=== PATIENT | male | born 1970 | race Caucasian/White ===

== ENCOUNTER 2024-11-22 13:45 | Outpatient (REF) | payer OTHER, SELFPAY ==
--- OUTSIDE RECORDS SUMMARY | 2024-09-13 11:00 | XMS_ITS | Encounter Summary ---
Author Name [facility] [place] [facility] [place] Address [address] [place] [address] Care Team Providers Care Texturing Machine Fixer Name Role Phone ISAEL LAY Primary Care Provider Unavail able Selected Encounter This section includes the information on record at [place] for the Encounter. Date/Time Encounter Type Encounter Description Reason Provider Source Sep 13, 2024 03:00 PM PSYCH DIAGNOSTIC EVALUATION PRIMARY CARE/MEDICINE ICD-10-CM Z72.0 Tobacco use ARIAS MCMANUS Harsh Encounter Template Text not used by CT Assessments - Encounter Diagnoses This section includes the primary and secondary diagnoses documented for the Encounter. Date/Time Primary/Secondary Diagnosis Diagnosis Name Provider Source Sep 17, 2024 01:20 PM PRIMARY Tobacco use BENIGNO VIGIL [facility] Sep 17, 2024 01:20 PM SECONDARY Nicotine dependence, cigarettes, uncomplicated BENIGNO VIGIL [facility] Plan of Treatment: Future Appointments (+ 6 months) and Future Tests (+/- 45 days) The Plan of Treatment section includes future care activities for the patient from all [place] treatmentfacilities. This section includes future appointments and future orders which are active, pending or scheduled. Future Appointments This section includes appointments that were scheduled to occur 6 months from the date of the Encounter, up to a maximum of 20 appointments. The data comes from all [place] treatment facilities. Appointment Date/Time Appointment Type Appointme nt Facility Name Sep 20, 2024 03:00 PM AMBULATORY - MEDICINE [facility] September 27, 2024 03:00 PM AMBULATORY [facility] October 17, 2024 01:45 PM [facility] Dec 19, 2024 01:45 PM [facility] Dec 19, 2024 03:30 PM AMBULATORY - MEDICINE [facility] Feb 27, 2025 03:00 PM [facility] Active, Pending, and Scheduled Orders This section includes a listing of several types of active, pending, and scheduled orders, including clinic medications orders, diagnostic test orders, procedure orders and consult orders; where the start date of the order is 45 days before the date of the Encounter or 45 days after the date of theEncounter. The data comes from all [facility] [place] facilities. Test Date/Time Test Type Test Details Facility Name Aug 05, 2024 12:00 AM Laboratory - Chemi stry Order BASIC METABOLIC PANEL (fasting) BLOOD (SST-SERUM) [facility] Aug 05, 2024 12:00 AM Laboratory - Chemi stry Order LIVER FUNCTION BLOOD (SST-SERUM) [facility] Aug 05, 2024 12:00 AM Laboratory - Chemi stry Order LIPID PANEL FASTING BLOOD (SST-SERUM) [facility] Aug 05, 2024 12:00 AM Laboratory - Chemi stry Order TSH BLOOD (SST-SERUM) [facility] Social History: Smoking Status (Most current) and Tobacco Use (All prior to encounter date) This section includes the most current, and the historical, smoking and tobacco- related health factors from the [place] facility where the Encounter took place. Current Smoking Status This section includes the most current smoking, or tobacco-related health factor, from the [place] facility where the Encounter took place. Date/Time Current Smoking Status Comment Facil ity Apr 11, 2024 11:30 AM VA-TOBACCO USER EVERY DAY [facility] Tobacco Use History This section includes a history of the smoking, or tobacco-related health factors, that were collected on or before the date of the Encounter. The data comes from the [place] facility where the Encounter took place. Date/Time Smoking Status/Tobacco Use Comment F acility Apr 11, 2024 11:30 AM VA-TOBACCO USE 30 YEARS OR MORE [facility] [place] [facility] Apr 11, 2024 11:30 AM VA-TOBACCO USE ADVICE [facility] [place] [facility] Apr 11, 2024 11:30 AM VA-TOBACCO USE SPONGE PACKER NO [facility] [place] [facility] Apr 11, 2024 11:30 AM VA-TOBACCO USE MED NO [facility] [place] [facility] Apr 11, 2024 11:30 AM VA-TOBACCO USER EVERY DAY [facility] [place] [facility] Jan 03, 2023 03:30 PM VA-TOBACCO DOESNT USE WI 30 MIN WAKEUP [facility] [place] [facility] Jan 03, 2023 03:30 PM VA-TOBACCO USE 30 YEARS OR MORE [facility] [place] [facility] Jan 03, 2023 03:30 PM VA-TOBACCO USE ADVICE [facility] [place] [facility] Jan 03, 2023 03:30 PM VA-TOBACCO USE SPONGE PACKER NO [facility] [place] [facility] Jan 03, 2023 03:30 PM VA-TOBACCO USE MED NO [facility] [place] [facility] Jan 03, 2023 03:30 PM VA-TOBACCO USER EVERY DAY [facility] [place] [facility] Dec 03, 2021 03:00 PM VA-TOBACCO DOESNT USE WI 30 MIN WAKEUP [facility] [place] [facility] Dec 03, 2021 03:00 PM VA-TOBACCO USE 30 YEARS OR MORE [facility] [place] [facility] Dec 03, 2021 03:00 PM VA-TOBACCO USE ADVICE [facility] [place] [facility] Dec 03, 2021 03:00 PM VA-TOBACCO USE SPONGE PACKER NO [facility] [place] [facility] Dec 03, 2021 03:00 PM VA-TOBACCO USE MED NO [facility] [place] [facility] Dec 03, 2021 03:00 PM VA-TOBACCO USER EVERY DAY [facility] [place] [facility] Dec 31, 2020 01:30 PM VA-TOBACCO DOESNT USE WI 30 MIN WAKEUP [facility] [place] [facility] Dec 31, 2020 01:30 PM VA-TOBACCO USE > 1 5 LESS THAN 30 YEARS [facility] [place] [facility] Dec 31, 2020 01:30 PM VA-TOBACCO USE ADVICE [facility] [place] [facility] Dec 31, 2020 01:30 PM VA-TOBACCO USE SPONGE PACKER NO [facility] [place] [facility] Dec 31, 2020 01:30 PM VA-TOBACCO USE MED NO [facility] [place] [facility] Dec 31, 2020 01:30 PM VA-TOBACCO USER EVERY DAY [facility] [place] [facility] Sep 03, 2019 07:49 AM VA-TOBACCO USE 5 TO 15 YEARS [facility] [place] [facility] Sep 03, 2019 07:49 AM VA-TOBACCO USE ADVICE [facility] [place] [facility] Sep 03, 2019 07:49 AM VA-TOBACCO USE SPONGE PACKER NO [facility] [place] [facility] Sep 03, 2019 07:49 AM VA-TOBACCO USE MED YES [facility] [place] [facility] Sep 03, 2019 07:49 AM VA-TOBACCO USE WI 30 MIN OF WAKEUP [facility] [place] [facility] Sep 03, 2019 07:49 AM VA-TOBACCO USER EVERY DAY [facility] [place] [facility] Encounter Notes: All associated encounter notes This section contains the clinical notes associated to the Encounter. Date/Time Encounter Note(s) Provider Source Sep 18, 2024 09:00 AM ADDENDUM: LOCAL TITLE: Addendum STANDARD TITLE: ADDENDUM DATE OF NOTE: SEP 18, 2024@09:00:30 ENTRY DATE: SEP 18, 2024@09:00:31 AUTHOR: JAYLA MCMANUS EXP COSIGNER: URGENCY: STATUS: COMPLETED I have reviewed this case and concur with the clinical impressions and recommendations made by this trainee who is under my clinical supervision. alerting amsa to rtc in [address] internet site designer clinic. thank you /mirta/ Jayla Mcmanus PhD Clinical Psychologist Signed: 09/18/2024 09:00 Receipt Acknowledged By: 09/19/2024 11:26 /es/ IRENE AUGUSTINE SABRINA --- Original Document --- 09/13/24 TOBACCO CESSATION NOTE: Tobacco Cessation Screening Evaluation Duration: DEMOGRAPHICS AND INFORMATION ON TOBACCO USE HISTORY: Age: 54 Age of first cigarette/use of tobacco: 14 Number of years of tobacco use: 40 years Number of cigarettes smoked daily: 10 Smokeless tobacco use (tobacco chew or pouches): No Cigar use: No E-cigarette use: No Nicotine pouches (zyn 3mg or 6mg): No Heaviness of Smoking Index 1. How soon after you wake up do you smoke your first cigarette? After 60 minutes (0) X 31-60 minutes (1) 6-30 minutes (2) Within 5 minutes (3) 2. How many cigarettes per day do you smoke? 10 or less (0) X 11-20 (1) 21-30 (2) 31 or more (3) Level of dependence on nicotine is: 0 low dependence Brand of tobacco product: [place] Serious quit attempts (number of times quit for at least 24 hours): [place] reported about 5 serious attempts to quit smoking. Longest period of abstinence: 5 years Pharmacological / Behavioral methods used: 1. Nicotine patch: No. [place] indicated he might be interested in this option. 2. Nicotine gum: Yes, tried it. Too strong. Napan[place] like I was going to . My blood pressure byron. It was crazy. My PA said I had probably been prescribed too much and could prescribe smaller amounts. 3. Nicotine lozenges: Those actually work. They took away the headaches. 4. Bupropion: No 5. Chantix: No. [place] reported openness to trying Chantix given how popular it is but is leery of the side effects including nightmares. Ever been to a Smoking Cessation Clinic before?: Yes. [place] reported having 6 smoking cessation sessions through the [facility] a couple of years ago. MEDICAL RISK FACTORS: Active Problem HTN - Hypertension ([facility] [id number]) I 05/07/2024 ISAEL LAY Long-term current use of anticoagul 04/22/2024 MICHAEL SHORT Thoracic aortic aneurysm without ru 04/20/2024 ISAEL LAY Family history of cancer of colon Z 04/18/2024 ISAEL LAY DVT - Deep vein thrombosis I82.409, 06/07/2024 ISAEL LAY Skin rash R21. 07/06/2023 ELIU OLSON History of male erectile disorder Z 08/02/2022 WESLEY,KIZZYED JAWED Polyp of colon Z86.010 09/13/2019 ELIU OLSON JAWED Obesity E66.8 12/12/2019 WESLEY,KIZZYED JAWED Tobacco use Z72.0 09/13/2019 ELIU OLSON JAWYVONNE SUBSTANCE USE SCREENING Drug use (is it a trigger?): [place] denied current drug use. Alcohol use (is it a trigger?): [place] reported that he often drinks and smokes cigarettes simultaneously. Mixed drink (vodka or gin). 3 times/week. 4-5 drinks on average. MENTAL HEALTH ASSESSMENT Past/current treatment for mental health problems: I saw a counselor. Current mood: Good. Risk Assessment: does not endorse current thoughts of self-harm, suicidal ideation, or harm to others. Over the past two weeks, how often have you been bothered by the following problems? 1. Little interest or pleasure in doing things Not at all 2. Feeling down, depressed, or hopeless Not at all 3. Thoughts that you would be better off or of hurting yourself in some way Not at all Active Outpatient Medications (including Supplies): Active Outpatient Medications Status = 1) APIXABAN 5MG TAB TAKE ONE TABLET BY MOUTH EVERY 12 HOURS FOR ACTIVE (S) THE PREVENTION OF BLOOD CLOTS Indication: DVT/PE 2) ATENOLOL 50MG TAB TAKE ONE TABLET BY MOUTH AT BEDTIME FOR HOLD BLOOD PRESSURE/HEART Indication: FOR HIGH BLOOD PRESSURE 3) HYDROCHLOROTHIAZIDE 25MG TAB TAKE ONE TABLET BY MOUTH EVERY ACTIVE MORNING Indication: FOR HIGH BLOOD PRESSURE 4) LOSARTAN 100MG TAB TAKE ONE TABLET BY MOUTH ONCE DAILY FOR ACTIVE BLOOD PRESSURE/HEART Active Non-VA Medications Status = 1) Non-VA LORATADINE 10MG TAB 10MG BY MOUTH ONCE DAILY ACTIVE NEEDED 5 Total Medications MOTIVATIONAL ENHANCEMENT: Reasons for Quitting: Why do you want to quit? I can't keep going this way or I won't be here for my son's children. I want to be grandpa. That's a really big motivator. I want to feel better, overall. Costs of Smoking (per month): (How about the cost of smoking does that bother you?) Obstacles: (What get in your way of quitting smoking?) It's a coping mechanism for me. It's a little reprieve to relax and be able to think about things. It's a deeply engrained habit. The chemicals are brutal. Your body really is dependent on those chemicals. INTEREST IN TOBACCO USE CESSATION: How important is it to you to quit? (0-10): 8 How sure are you that you can quit? (0-10): 5 Thoughts of Can I maintain it? I don't want to set myself up for failure. MENTAL STATUS: [place] was oriented x3, mental status was WNL. No behavioral, perceptual or thought disturbances reported or observed. No concerns. CURRENT IMPRESSION OF LETHALITY RISK / PLAN FOR RISK MANAGEMENT: No thoughts, intent or plan to harm self or others was reported. No imminent risk reported. IMPRESSION: is a 54-year old White male with a long history of tobacco use, having smoked for 40 years. He reported approximately 5 serious quit attempts, with the longest period of abstinence lasting 5 years. He identified using cigarettes as a coping mechanism and the deeply engrained habit of smoking as primary triggers for smoking and expressed a strong commitment to living a healthy lifestyle so that he can be around for his future grandchildren, which serves as a high motivator for cessation. Larry reported a high level of motivation to quit and moderate level of confidence in his ability to do so resulting from thoughts such as Can I actually do it? and I don't want to set myself up for failure. Larry reported a clear desire to live longer and improve his overall health, and presented as engaged and ready to take meaningful steps toward quitting. DIAGNOSIS: Tobacco Use Disorder, Mild PLAN: [place]'s options for smoking cessation Tx were discussed. Recommendations for Tx, based on [place]'s nicotine pattern, were also discussed. Below is a plan made with the based on evidence based Tx and preferences. Larry will participate in individual smoking cessation counseling with this provider. [place] expressed interest in group therapy for smoking cessation, if available. Larry is interested in initiating nicotine replacement therapy (NRT) and will utilize both the nicotine patch and lozenges, which he has previously found to be helpful. [place] expressed interest in learning more about pharmacotherapy options, including bupropion and varenicline (Chantix), and will be provided with information to support informed decision-making. Larry and this provider will collaborate to develop a personalized quit plan, address potential triggers (e.g., boredom), and build coping strategies to support long-term cessation. Follow-up sessions will be scheduled to monitor progress, provide support, and adjust the treatment plan as needed. Next session schedule for Monday, 09/20 at 3:00pm. Suicide Screen: C-SSRS Screening [place]-Suicide Severity Rating Scale (C-SSRS Screener) 1. Over the past month, have you wished you were or wished you could go to sleep and not wake up? No 2. Over the past month, have you had any actual thoughts of killing yourself? No 3. Over the past month, have you been thinking about how you might do this? Response not required due to responses to other questions. 4. Over the past month, have you had these thoughts and had some intention of acting on them? Response not required due to responses to other questions. 5. Over the past month, have you started to work out or worked out the details of how to kill yourself? Response not required due to responses to other questions. 6. If yes, at any time in the past month did you intend to carry out this plan? Response not required due to responses to other questions. 7. In your lifetime, have you ever done anything, started to do anything, or prepared to do anything to end your life (for example, collected pills, obtained a gun, gave away valuables, went to the roof but didn't jump)? No 8. If YES, was this within the past 3 months? Response not required due to responses to other questions. This case is supervised by Dr. Jayla Mcmanus. Diagnosis, treatment plan, and response to care are reviewed in standard 1-hour, or more, weekly individual supervision meeting. /mirta/ AZIZA VIGIL MA Merchandise Handler Signed: 09/17/2024 13:21 /mirta/ Jayla Mcmanus, PhD Clinical Psychologist Cosigned: 09/18/2024 09:[address] [facility] Sep 13, 2024 03:06 PM SMOKING CESSATION NOTE: LOCAL TITLE: TOBACCO CESSATION NOTE STANDARD TITLE: SMOKING CESSATION NOTE DATE OF NOTE: SEP 13, 2024@15:06 ENTRY DATE: SEP 13, 2024@15:06:57 AUTHOR: AZIZA VIGIL COSIGNER: JAYLA MCMANUS URGENCY: STATUS: COMPLETED TOBACCO CESSATION NOTE Has ADDENDA Tobacco Cessation Screening Evaluation Duration: DEMOGRAPHICS AND INFORMATION ON TOBACCO USE HISTORY: Age: 54 Age of first cigarette/use of tobacco: 14 Number of years of tobacco use: 40 years Number of cigarettes smoked daily: 10 Smokeless tobacco use (tobacco chew or pouches): No Cigar use: No E-cigarette use: No Nicotine pouches (zyn 3mg or 6mg): No Heaviness of Smoking Index 1. How soon after you wake up do you smoke your first cigarette? After 60 minutes (0) X 31-60 minutes (1) 6-30 minutes (2) Within 5 minutes (3) 2. How many cigarettes per day do you smoke? 10 or less (0) X 11-20 (1) 21-30 (2) 31 or more (3) Level of dependence on nicotine is: 0 low dependence Brand of tobacco product: Jason Serious quit attempts (number of times quit for at least 24 hours): [place] reported about 5 serious attempts to quit smoking. Longest period of abstinence: 5 years Pharmacological / Behavioral methods used: 1. Nicotine patch: No. indicated he might be interested in this option. 2. Nicotine gum: Yes, tried it. Too strong. [place] like I was going to . My blood pressure byron. It was crazy. My PA said I had probably been prescribed too much and could prescribe smaller amounts. 3. Nicotine lozenges: Those actually work. They took away the headaches. 4. Bupropion: No 5. Chantix: No. reported openness to trying Chantix given how popular it is but is leery of the side effects including nightmares. Ever been to a Smoking Cessation Clinic before?: Yes. reported having 6 smoking cessation [facility]. MEDICAL RISK FACTORS: Active Problem HTN - Hypertension ([facility] [id number]) I 05/07/2024 ISAEL LAY Long-term current use of anticoagul 04/22/2024 MICHAEL SHORT Thoracic aortic aneurysm without ru 04/20/2024 ISAEL LAY Family history of cancer of colon Z 04/18/2024 ISAEL LAY DVT - Deep vein thrombosis I82.409, 06/07/2024 ISAEL LAY Skin rash R21. 07/06/2023 ELIU OLSON History of male erectile disorder Z 08/02/2022 ELIU OLSON Polyp of colon Z86.010 09/13/2019 ELIU OLSON Obesity E66.8 12/12/2019 ELIU OLSON Tobacco use Z72.0 09/13/2019 ELIU OLSON SUBSTANCE USE SCREENING Drug use (is it a trigger?): [place] denied current drug use. Alcohol use (is it a trigger?): [place] reported that he often drinks and smokes cigarettes simultaneously. Mixed drink (vodka or gin). 3 times/week. 4-5 drinks on average. MENTAL HEALTH ASSESSMENT Past/current treatment for mental health problems: I saw a counselor. Current mood: Good. Risk Assessment: does not endorse current thoughts of self-harm, suicidal ideation, or harm to others. Over the past two weeks, how often have you been bothered by the following problems? 1. Little interest or pleasure in doing things Not at all 2. Feeling down, depressed, or hopeless Not at all 3. Thoughts that you would be better off or of hurting yourself in some way Not at all Active Outpatient Medications (including Supplies): Active Outpatient Medications Status = 1) APIXABAN 5MG TAB TAKE ONE TABLET BY MOUTH EVERY 12 HOURS FOR ACTIVE (S) THE PREVENTION OF BLOOD CLOTS Indication: DVT/PE 2) ATENOLOL 50MG TAB TAKE ONE TABLET BY MOUTH AT BEDTIME FOR HOLD BLOOD PRESSURE/HEART Indication: FOR HIGH BLOOD PRESSURE 3) HYDROCHLOROTHIAZIDE 25MG TAB TAKE ONE TABLET BY MOUTH EVERY ACTIVE MORNING Indication: FOR HIGH BLOOD PRESSURE 4) LOSARTAN 100MG TAB TAKE ONE TABLET BY MOUTH ONCE DAILY FOR ACTIVE BLOOD PRESSURE/HEART Active Non-VA Medications Status = 1) Non-VA LORATADINE 10MG TAB 10MG BY MOUTH ONCE DAILY ACTIVE NEEDED 5 Total Medications MOTIVATIONAL ENHANCEMENT: Reasons for Quitting: Why do you want to quit? I can't keep going this way or I won't be here for my son's children. I want to be grandpa. That's a really big motivator. I want to feel better, overall. Costs of Smoking (per month): (How about the cost of smoking does that bother you?) Obstacles: (What get in your way of quitting smoking?) It's a coping mechanism for me. It's a little reprieve to relax and be able to think about things. It's a deeply engrained habit. The chemicals are brutal. Your body really is dependent on those chemicals. INTEREST IN TOBACCO USE CESSATION: How important is it to you to quit? (0-10): 8 How sure are you that you can quit? (0-10): 5 Thoughts of Can I maintain it? I don't want to set myself up for failure. MENTAL STATUS: Larry was oriented x3, mental status was WNL. No behavioral, perceptual or thought disturbances reported or observed. No concerns. CURRENT IMPRESSION OF LETHALITY RISK / PLAN FOR RISK MANAGEMENT: No thoughts, intent or plan to harm self or others was reported. No imminent risk reported. IMPRESSION: Larry is a 54-year old White male with a long history of tobacco use, having smoked for 40 years. He reported approximately 5 serious quit attempts, with the longest period of abstinence lasting 5 years. He identified using cigarettes as a coping mechanism and the deeply engrained habit of smoking as primary triggers for smoking and expressed a strong commitment to living a healthy lifestyle so that he can be around for his future grandchildren, which serves as a high motivator for cessation. Larry reported a high level of motivation to quit and moderate level of confidence in his ability to do so resulting from thoughts such as Can I actually do it? and I don't want to set myself up for failure. Larry reported a clear desire to live longer and improve his overall health, and presented as engaged and ready to take meaningful steps toward quitting. DIAGNOSIS: Tobacco Use Disorder, Mild PLAN: Larry's options for smoking cessation Tx were discussed. Recommendations for Tx, based on Larry's nicotine pattern, were also discussed. Below is a plan made with the [place] based on evidence based Tx and preferences. Larry will participate in individual smoking cessation counseling with this provider. Larry expressed interest in group therapy for smoking cessation, if available. Larry is interested in initiating nicotine replacement therapy (NRT) and will utilize both the nicotine patch and lozenges, which he has previously found to be helpful. Larry expressed interest in learning more about pharmacotherapy options, including bupropion and varenicline (Chantix), and will be provided with information to support informed decision-making. [place] and this provider will collaborate to develop a personalized quit plan, address potential triggers (e.g., boredom), and build coping strategies to support long-term cessation. Follow-up sessions will be scheduled to monitor progress, provide support, and adjust the treatment plan as needed. Next session schedule for Monday, 09/20 at 3:00pm. Suicide Screen: C-SSRS Screening [place]-Suicide Severity Rating Scale (C-SSRS Screener) 1. Over the past month, have you wished you were or wished you could go to sleep and not wake up? No 2. Over the past month, have you had any actual thoughts of killing yourself? No 3. Over the past month, have you been thinking about how you might do this? Response not required due to responses to other questions. 4. Over the past month, have you had these thoughts and had some intention of acting on them? Response not required due to responses to other questions. 5. Over the past month, have you started to work out or worked out the details of how to kill yourself? Response not required due to responses to other questions. 6. If yes, at any time in the past month did you intend to carry out this plan? Response not required due to responses to other questions. 7. In your lifetime, have you ever done anything, started to do anything, or prepared to do anything to end your life (for example, collected pills, obtained a gun, gave away valuables, went to the roof but didn't jump)? No 8. If YES, was this within the past 3 months? Response not required due to responses to other questions. This case is supervised by Dr. Jayla Mcmanus. Diagnosis, treatment plan, and response to care are reviewed in standard 1-hour, or more, weekly individual supervision meeting. /mirta/ AZIZA VIGIL MA Merchandise Handler Signed: 09/17/2024 13:21 /mirta/ Jayla Mcmanus, PhD Clinical Psychologist Cosigned: 09/18/2024 09:00 09/18/2024 ADDENDUM STATUS: COMPLETED I have reviewed this case and concur with the clinical impressions and recommendations made by this trainee who is under my clinical supervision. alerting amsa to rtc in chart [facility] internet site designer clinic. thank you /mirat/ Jayla Mcmanus, PhD Clinical Psychologist Signed: 09/18/2024 09:00 Receipt Acknowledged By: * AWAITING SIGNATURE * IRENE AUGUSTINE,AZIZA KOHLI [facility]
[2024-11-22 14:14] LABS: MANUAL DIFF FLAG NO
[2024-11-22 14:17] LABS: Basophils Percent Auto 0.8 % (0-2); Eosinophils Absolute Auto 0.2 X10*3/uL (0.0-0.4); Eosinophils Percent Auto 2.9 % (0-4); Hematocrit 39.5 % (42.0-52.0); Hemoglobin 14.2 g/dl (14.0-18.0); Imm Gran Abs Auto 0.01 X10*3/uL (0.00-0.03); Imm Gran Pct Auto 0.2 % (0.0-0.4); Lymphocytes Absolute Auto 1.2 X10*3/uL (1.2-4.9); Lymphocytes Percent Auto 22.8 % (20-40); Mean Corpuscular HGB Conc 35.9 g/dl (31.0-36.0); Mean Corpuscular Hemoglobin 33.3 pg (27.0-33.0); Mean Corpuscular Volume 92.5 fL (80.0-98.0); Mean Platelet Volume 9.2 fL (9.4-12.4); Monocytes Absolute Auto 0.7 X10*3/uL (0.1-1.2); Monocytes Percent Auto 12.7 % (2-11); Neutrophils Absolute Auto 3.1 x10*3/uL (2.0-8.3); Neutrophils Percent Auto 60.6 % (45-73); Platelet Count 269 X10*3/uL (160-400); Red Blood Count 4.27 X10*6/uL (4.60-5.80); Red Cell Distribution Width 14.8 % (11.0-16.0); White Blood Count 5.2 X10*3/uL (4.8-10.8)
[2024-11-22 15:24] LABS: Ferritin 601 ng/mL (20-250)
== END 2024-11-22 13:46 | disposition home or self-care (01) ==
LOC: HO.BBR 13:45
PROVIDERS: PCP Physician Assistant; Visit Provider Internal Medicine Hematology & Oncology
DX: E83.110 Hereditary hemochromatosis (principal)
CPT/HCPCS: 36415; 82728; 85025

== ENCOUNTER 2024-12-06 13:50 | Outpatient (REF) | payer OTHER, SELFPAY ==
[2024-12-06 14:04] LABS: MANUAL DIFF FLAG NO
[2024-12-06 14:05] LABS: Hematocrit 39.3 % (42.0-52.0); Hemoglobin 13.9 g/dl (14.0-18.0); Imm Gran Abs Auto 0.02 X10*3/uL (0.00-0.03); Imm Gran Pct Auto 0.3 % (0.0-0.4); Lymphocytes Absolute Auto 1.3 X10*3/uL (1.2-4.9); Mean Corpuscular HGB Conc 35.4 g/dl (31.0-36.0); Mean Corpuscular Hemoglobin 33.7 pg (27.0-33.0); Mean Corpuscular Volume 95.2 fL (80.0-98.0); NRBC Abs Auto 0.000 X10*3/uL (0.0-0.012); NRBC Pct Auto 0.0 /100WBC (0.0-0.2); Platelet Count 282 X10*3/uL (160-400); Red Blood Count 4.13 X10*6/uL (4.60-5.80); White Blood Count 6.3 X10*3/uL (4.8-10.8)
[2024-12-06 15:09] LABS: Ferritin 427 ng/mL (20-250)
== END 2024-12-06 13:51 | disposition home or self-care (01) ==
LOC: HO.BBR 13:50
PROVIDERS: PCP Physician Assistant; Visit Provider Internal Medicine Hematology & Oncology
DX: E83.110 Hereditary hemochromatosis (principal)
CPT/HCPCS: 36415; 82728; 85025

== ENCOUNTER 2024-12-20 14:01 | Outpatient (REF) | payer OTHER, SELFPAY ==
[2024-12-20 14:12] LABS: MANUAL DIFF FLAG NO
[2024-12-20 14:13] LABS: Hematocrit 42.1 % (42.0-52.0); Hemoglobin 14.8 g/dl (14.0-18.0); Imm Gran Abs Auto 0.01 X10*3/uL (0.00-0.03); Imm Gran Pct Auto 0.2 % (0.0-0.4); Lymphocytes Absolute Auto 1.3 X10*3/uL (1.2-4.9); Mean Corpuscular HGB Conc 35.2 g/dl (31.0-36.0); Mean Corpuscular Hemoglobin 34.6 pg (27.0-33.0); Mean Corpuscular Volume 98.4 fL (80.0-98.0); NRBC Abs Auto 0.000 X10*3/uL (0.0-0.012); NRBC Pct Auto 0.0 /100WBC (0.0-0.2); Platelet Count 325 X10*3/uL (160-400); Red Blood Count 4.28 X10*6/uL (4.60-5.80); White Blood Count 6.2 X10*3/uL (4.8-10.8)
[2024-12-20 15:10] LABS: Ferritin 234 ng/mL (20-250)
== END 2024-12-20 14:02 | disposition home or self-care (01) ==
LOC: HO.BBR 14:01
PROVIDERS: Visit Provider Internal Medicine Hematology & Oncology
DX: E83.110 Hereditary hemochromatosis (principal)
CPT/HCPCS: 36415; 82728; 85025

== ENCOUNTER 2025-01-03 13:58 | Outpatient (REF) | payer OTHER, SELFPAY ==
[2025-01-03 14:06] LABS: MANUAL DIFF FLAG NO
[2025-01-03 14:08] LABS: Hematocrit 42.1 % (42.0-52.0); Hemoglobin 15.3 g/dl (14.0-18.0); Imm Gran Abs Auto 0.02 X10*3/uL (0.00-0.03); Imm Gran Pct Auto 0.4 % (0.0-0.4); Lymphocytes Absolute Auto 1.4 X10*3/uL (1.2-4.9); Mean Corpuscular HGB Conc 36.3 g/dl (31.0-36.0); Mean Corpuscular Hemoglobin 34.9 pg (27.0-33.0); Mean Corpuscular Volume 96.1 fL (80.0-98.0); NRBC Abs Auto 0.000 X10*3/uL (0.0-0.012); NRBC Pct Auto 0.0 /100WBC (0.0-0.2); Platelet Count 295 X10*3/uL (160-400); Red Blood Count 4.38 X10*6/uL (4.60-5.80); White Blood Count 4.7 X10*3/uL (4.8-10.8)
[2025-01-03 15:13] LABS: Ferritin 220 ng/mL (20-250)
== END 2025-01-03 13:59 | disposition home or self-care (01) ==
LOC: HO.BBR 13:58
PROVIDERS: Visit Provider Internal Medicine Hematology & Oncology
DX: E83.110 Hereditary hemochromatosis (principal)
CPT/HCPCS: 36415; 82728; 85025

== ENCOUNTER 2025-01-17 13:46 | Outpatient (REF) | payer OTHER, SELFPAY ==
[2025-01-17 14:01] LABS: MANUAL DIFF FLAG NO
[2025-01-17 14:02] LABS: Hematocrit 43.4 % (42.0-52.0); Hemoglobin 15.6 g/dl (14.0-18.0); Imm Gran Abs Auto 0.02 X10*3/uL (0.00-0.03); Imm Gran Pct Auto 0.3 % (0.0-0.4); Lymphocytes Absolute Auto 1.6 X10*3/uL (1.2-4.9); Mean Corpuscular HGB Conc 35.9 g/dl (31.0-36.0); Mean Corpuscular Hemoglobin 35.3 pg (27.0-33.0); Mean Corpuscular Volume 98.2 fL (80.0-98.0); NRBC Abs Auto 0.000 X10*3/uL (0.0-0.012); NRBC Pct Auto 0.0 /100WBC (0.0-0.2); Platelet Count 332 X10*3/uL (160-400); Red Blood Count 4.42 X10*6/uL (4.60-5.80); White Blood Count 6.6 X10*3/uL (4.8-10.8)
[2025-01-17 15:34] LABS: Ferritin 122 ng/mL (20-250)
== END 2025-01-17 13:47 | disposition home or self-care (01) ==
LOC: HO.BBR 13:46
PROVIDERS: Visit Provider Internal Medicine Hematology & Oncology
DX: E83.110 Hereditary hemochromatosis (principal)
CPT/HCPCS: 36415; 82728; 85025

== ENCOUNTER 2025-01-31 15:00 | Outpatient (REF) | payer OTHER, SELFPAY ==
[2025-01-31 15:08] LABS: MANUAL DIFF FLAG NO
[2025-01-31 15:11] LABS: Hematocrit 42.0 % (42.0-52.0); Hemoglobin 15.1 g/dl (14.0-18.0); Imm Gran Abs Auto 0.02 X10*3/uL (0.00-0.03); Imm Gran Pct Auto 0.3 % (0.0-0.4); Lymphocytes Absolute Auto 1.4 X10*3/uL (1.2-4.9); Mean Corpuscular HGB Conc 36.0 g/dl (31.0-36.0); Mean Corpuscular Hemoglobin 35.2 pg (27.0-33.0); Mean Corpuscular Volume 97.9 fL (80.0-98.0); NRBC Abs Auto 0.000 X10*3/uL (0.0-0.012); NRBC Pct Auto 0.0 /100WBC (0.0-0.2); Platelet Count 375 X10*3/uL (160-400); Red Blood Count 4.29 X10*6/uL (4.60-5.80); White Blood Count 7.2 X10*3/uL (4.8-10.8)
[2025-01-31 16:59] LABS: Ferritin 73 ng/mL (20-250)
== END 2025-01-31 15:01 | disposition home or self-care (01) ==
LOC: HO.BBR 15:00
PROVIDERS: Visit Provider Internal Medicine Hematology & Oncology
DX: E83.110 Hereditary hemochromatosis (principal)
CPT/HCPCS: 36415; 82728; 85025

== ENCOUNTER 2025-02-14 13:59 | Outpatient (REF) | payer OTHER, SELFPAY ==
[2025-02-14 14:17] LABS: MANUAL DIFF FLAG NO
[2025-02-14 14:19] LABS: Hematocrit 44.3 % (42.0-52.0); Hemoglobin 15.1 g/dl (14.0-18.0); Imm Gran Abs Auto 0.02 X10*3/uL (0.00-0.03); Imm Gran Pct Auto 0.3 % (0.0-0.4); Lymphocytes Absolute Auto 1.2 X10*3/uL (1.2-4.9); Mean Corpuscular HGB Conc 34.1 g/dl (31.0-36.0); Mean Corpuscular Hemoglobin 34.1 pg (27.0-33.0); Mean Corpuscular Volume 100.0 fL (80.0-98.0); NRBC Abs Auto 0.000 X10*3/uL (0.0-0.012); NRBC Pct Auto 0.0 /100WBC (0.0-0.2); Platelet Count 364 X10*3/uL (160-400); Red Blood Count 4.43 X10*6/uL (4.60-5.80); White Blood Count 6.5 X10*3/uL (4.8-10.8)
[2025-02-14 15:34] LABS: Ferritin 172 ng/mL (20-250)
== END 2025-02-14 14:00 | disposition home or self-care (01) ==
LOC: HO.BBR 13:59
PROVIDERS: Visit Provider Internal Medicine Hematology & Oncology
DX: E83.110 Hereditary hemochromatosis (principal)
CPT/HCPCS: 36415; 82728; 85025

== ENCOUNTER 2025-02-28 14:53 | Outpatient (REF) | payer OTHER, SELFPAY ==
[2025-02-28 15:05] LABS: Hematocrit 42.0 % (42.0-52.0); Hemoglobin 14.6 g/dl (14.0-18.0); Imm Gran Abs Auto 0.03 X10*3/uL (0.00-0.03); Imm Gran Pct Auto 0.4 % (0.0-0.4); Lymphocytes Absolute Auto 1.3 X10*3/uL (1.2-4.9); MANUAL DIFF FLAG NO; Mean Corpuscular HGB Conc 34.8 g/dl (31.0-36.0); Mean Corpuscular Hemoglobin 34.0 pg (27.0-33.0); Mean Corpuscular Volume 97.9 fL (80.0-98.0); NRBC Abs Auto 0.000 X10*3/uL (0.0-0.012); NRBC Pct Auto 0.0 /100WBC (0.0-0.2); Platelet Count 355 X10*3/uL (160-400); Red Blood Count 4.29 X10*6/uL (4.60-5.80); White Blood Count 8.3 X10*3/uL (4.8-10.8)
[2025-02-28 15:55] LABS: Ferritin 94 ng/mL (20-250)
== END 2025-02-28 14:54 | disposition home or self-care (01) ==
LOC: HO.BBR 14:53
PROVIDERS: Visit Provider Internal Medicine Hematology & Oncology
DX: E83.110 Hereditary hemochromatosis (principal)
CPT/HCPCS: 36415; 82728; 85025

== ENCOUNTER 2025-03-28 14:10 | Outpatient (REF) | payer OTHER, SELFPAY ==
[2025-03-28 14:29] LABS: MANUAL DIFF FLAG NO
[2025-03-28 14:30] LABS: Hematocrit 38.7 % (42.0-52.0); Hemoglobin 13.3 g/dl (14.0-18.0); Imm Gran Abs Auto 0.02 X10*3/uL (0.00-0.03); Imm Gran Pct Auto 0.4 % (0.0-0.4); Lymphocytes Absolute Auto 1.3 X10*3/uL (1.2-4.9); Mean Corpuscular HGB Conc 34.4 g/dl (31.0-36.0); Mean Corpuscular Hemoglobin 32.2 pg (27.0-33.0); Mean Corpuscular Volume 93.7 fL (80.0-98.0); NRBC Abs Auto 0.000 X10*3/uL (0.0-0.012); NRBC Pct Auto 0.0 /100WBC (0.0-0.2); Platelet Count 330 X10*3/uL (160-400); Red Blood Count 4.13 X10*6/uL (4.60-5.80); White Blood Count 4.7 X10*3/uL (4.8-10.8)
[2025-03-28 15:17] LABS: Ferritin 38 ng/mL (20-250)
== END 2025-03-28 14:11 | disposition home or self-care (01) ==
LOC: HO.BBR 14:10
PROVIDERS: Visit Provider Internal Medicine Hematology & Oncology
DX: E83.110 Hereditary hemochromatosis (principal)
CPT/HCPCS: 36415; 82728; 85025